=== PATIENT | female | born 1995 | race African-American/Black ===

== ENCOUNTER 2017-08-08 22:39 | Emergency (ER) | payer SELFPAY ==
[2017-08-08 22:44] VITALS: BP 123/71; PULSE 73; TEMP 98.3; BMI 18.0
== END 2017-08-09 00:15 | disposition left against medical advice (07) ==
LOC: JER 22:39
DX: Z53.21 Procedure and treatment not carried out due to patient leaving prior to being seen by health care provider (principal)
CPT/HCPCS: 99281-25